=== PATIENT | male | born 1975 | race African-American/Black ===

== ENCOUNTER 2021-01-12 14:16 | Emergency (ER) | payer MEDICAID, OTHER ==
[~2021-01-12] VITALS: Ht 185.4 cm; Wt 95.0 kg
[2021-01-12] MEDS ORDERED: SODIUM CHLORIDE 0.9% 1,000 ML IV ONE (16:00)
[2021-01-12 16:22] LABS: BASOPHILS % 0.5 % (0.0-2.0); CHLORIDE 106 mEq/L (98-107); EOSINOPHILS % 0.1 % (0.0-5.0); HEMATOCRIT. 48.1 % (42.0-52.0); HEMOGLOBIN. 16.2 g/dL (14.0-18.0); MEAN CORPUSCULAR VOLUME 86.2 fL (80.0-94.0); MEAN PLATELET VOLUME 9.2 fl (7.4-10.4); MONOCYTES % 2.8 % (2.0-8.0); NEUTROPHILS % 88.6 % (40.0-76.0); PLATELET 349 x1000/uL (130-400); RED BLOOD CELL COUNT 5.58 mill/uL (4.7-6.1); RED CELL DISTRIBUTION WIDTH 14.2 % (11.6-14.6)
[2021-01-12 16:27] LABS: ETHANOL BLOOD 257 mg/dL
[2021-01-12] MEDS ORDERED: ONDANSETRON HCL 4MG/2ML INJ IV ONE (18:30)
[2021-01-12] MEDS ORDERED: KETOROLAC 15MG/ML VIAL IV ONE (18:45)
[2021-01-12 23:09] VITALS: BP 110/64
== END 2021-01-12 23:11 | disposition home or self-care (01) ==
LOC: ER 14:16
DX: F10.129 Alcohol abuse with intoxication, unspecified (principal); Y90.8 Blood alcohol level of 240 mg/100 ml or more; R00.0 Tachycardia, unspecified; Z91.81 History of falling; Z89.612 Acquired absence of left leg above knee
CPT/HCPCS: 36415; 70450; 80053; 80320; 85025; 93005; 96361; 96374; 96375; 99285; J1885; J2405; J7030; G0480